=== PATIENT | female | born 1975 | race Caucasian/White ===

== ENCOUNTER 2018-07-20 01:48 | Outpatient (CLI) | payer OTHER, SELFPAY ==
[2018-07-20 08:37] LABS: ALT 21 U/L (12-78); AST 14 U/L (15-37); Albumin 3.6 g/dL (3.4-5.0); Alkaline Phosphatase 79 U/L (46-116); Anion Gap 7.9 mmol/L (3-11); BUN 13 mg/dL (7-18); Bilirubin, Total 0.6 mg/dL (0.2-1.0); CO2 27.1 mmol/L (21.0-32.0); CREATININE 0.84 mg/dL (0.55-1.02); Calcium 8.4 mg/dL (8.5-10.1); Chloride 106 mmol/L (98-107); Glucose 106 mg/dL (70-100); Potassium 4.3 mmol/L (3.5-5.1); Sodium 141 mmol/L (136-145); Total Protein 6.6 g/dL (6.4-8.2)
== END 2018-07-20 02:08 ==
DX: F32.9 Major depressive disorder, single episode, unspecified (principal); R51 Headache; G47.9 Sleep disorder, unspecified; H93.12 Tinnitus, left ear
CPT/HCPCS: 36415; 80053

== ENCOUNTER 2018-12-23 15:18 | Outpatient (REF) | payer OTHER, SELFPAY ==
--- NOTE | 2018-12-23 14:45 | PAPFT_PTH ---
PATIENT: Kierra Uriostegui LOC: [facility] U#:[id number] AGE/SX: 43/F ROOM: RE12/23/[address]: Elizabeth Bronson NP : 1975 BED: DIS: 12/23/2018 SPEC #: [id number] RECD: 12/23/18 18:06 STATUS: NANCY DANIELLE #: [id number] BETSY: 12/23/18 14:[address]: Elizabeth Bronson NP DEPT: [facility] Cytology RECD BY: Marguerite Barnhart ENTERED: 12/23/18 18:07 SP TYPE: PAPFT OTHR DR: Maricarmen Gomez APRN Tissues: 1 - CX/ENDOCX FOR PAP SMEARS Procedures: PAP THIN PREP/UVM Screening HPV DNA PROBE Comments: [id number]
== END 2018-12-23 15:38 ==
LOC: LBN 15:18
PROVIDERS: Visit Provider Nurse Practitioner Women's Health
DX: Z12.4 Encounter for screening for malignant neoplasm of cervix (principal); Z11.51 Encounter for screening for human papillomavirus (HPV)
CPT/HCPCS: 88142; 87624

== ENCOUNTER 2019-01-04 00:47 | Outpatient (CLI) | payer OTHER, SELFPAY ==
--- NOTE | 2019-01-04 17:30 | DI.MAMMO_ITS ---
SYMPTOM/DIAGNOSIS: SCREENING, Z12.31 MAMMOGRAMS: Mammograms were interpreted according to the usual protocol including computer analysis with CAD system, tomosynthesis and C view imaging. The breast tissue is of moderate radiodensity. There is no evidence of a mass. There are no suspicious calcifications and there has been no significant interval change when compared with prior images. SUMMARY: No evidence of malignancy. Category 1. Yearly screening mammography is recommended. Breast density, category B. SA ASSESSMENT OF FINDINGS: Negative. Category 1. Patient will receive a letter notifying them of these results. BI-RADS category B. There are scattered areas of fibroglandular density.
== END 2019-01-04 01:07 ==
PROVIDERS: Visit Provider Nurse Practitioner Women's Health
DX: Z12.31 Encounter for screening mammogram for malignant neoplasm of breast (principal)
CPT/HCPCS: 77063; 77067

== ENCOUNTER 2019-01-19 16:44 | Outpatient (REF) | payer OTHER, SELFPAY ==
--- NOTE | 2019-01-19 16:15 | CER_PTH ---
PATIENT: Kierra Uriostegui LOC: N U#:[id number] AGE/SX: 43/F ROOM: RE01/19/[address]: Ofelia Mills MD : 1975 BED: DIS: 01/19/2019 SPEC #: [id number] RECD: 01/19/19 17:47 STATUS: NANCY RERoselyn #: [id number] BETSY: 01/19/19 16:[address]: Ofelia Mills DEPT: Surgical Specimen RECD BY: Marguerite Barnhart ENTERED: 01/19/19 17:48 SP TYPE: CER SALVADOR DR: Maricarmen Gomez APRN Tissues: 1 - CERVICAL BIOPSY 2 - CERVICAL BIOPSY 3 - ENDOCERVICAL BX/CURRETTE Procedures: GROSS AND MICRO LEVEL 4 Comments: [id number]
== END 2019-01-19 17:04 ==
LOC: LBN 16:44
PROVIDERS: Visit Provider Obstetrics & Gynecology
DX: R87.610 Atypical squamous cells of undetermined significance on cytologic smear of cervix (ASC-US) (principal); Z97.5 Presence of (intrauterine) contraceptive device
CPT/HCPCS: 88305

== ENCOUNTER 2019-08-30 03:06 | Outpatient (CLI) | payer OTHER, SELFPAY ==
[2019-08-30 08:22] LABS: ALT 20 U/L (14-59); AST 11 U/L (15-37); Albumin 3.6 g/dL (3.4-5.0); Alkaline Phosphatase 68 U/L (46-116); Anion Gap 7.2 mmol/L (3-11); BUN 15 mg/dL (7-18); Bilirubin, Total 0.5 mg/dL (0.2-1.0); CO2 27.8 mmol/L (21.0-32.0); Calcium 8.5 mg/dL (8.5-10.1); Chloride 102 mmol/L (98-107); Glucose 97 mg/dL (74-106); Potassium 3.8 mmol/L (3.5-5.1); Sodium 137 mmol/L (136-145); Total Protein 6.2 g/dL (6.4-8.2)
== END 2019-08-30 03:26 ==
DX: F32.9 Major depressive disorder, single episode, unspecified (principal); G47.9 Sleep disorder, unspecified; R63.8 Other symptoms and signs concerning food and fluid intake; Z00.00 Encounter for general adult medical examination without abnormal findings
CPT/HCPCS: 36415; 80053

== ENCOUNTER 2020-04-03 10:45 | Outpatient (REF) | payer OTHER, SELFPAY ==
--- NOTE | 2020-04-03 09:15 | PAPFT_PTH ---
PATIENT: Kierra Uriostegui LOC: [facility] U#:[id number] AGE/SX: 44/F ROOM: RE04/03/[address]: Elizabeth Bronson NP : 1975 BED: DIS: 04/03/2020 SPEC #: [id number] RECD: 04/03/20 12:50 STATUS: NANCY DANIELLE #: [id number] BETSY: 04/03/20 09:[address]: Elizabeth Bronson NP DEPT: [facility] Cytology RECD BY: Marguerite Barnhart ENTERED: 04/03/20 12:50 SP TYPE: PAPFT OT DR: Maricarmen Gomez APRN Tissues: 1 - CX/ENDOCX FOR PAP SMEARS Procedures: PAP THIN PREP/UVM Screening HPV DNA PROBE Comments: [id number]
== END 2020-04-03 11:05 ==
LOC: LBN 10:45
PROVIDERS: Visit Provider Nurse Practitioner Women's Health
DX: Z12.4 Encounter for screening for malignant neoplasm of cervix (principal); Z11.51 Encounter for screening for human papillomavirus (HPV)
CPT/HCPCS: 88142; 87624

== ENCOUNTER 2020-04-25 01:14 | Outpatient (CLI) | payer OTHER, SELFPAY ==
--- NOTE | 2020-04-25 12:35 | DI.MAMMO_ITS ---
EXAM: MG MAMMO SCREENING CLINICAL HISTORY: screening TECHNIQUE: Bilateral full field digital CC and MLO mammographic images were obtained with 3D tomosyn thesis and utilizing computer aided detection (CAD). COMPARISON: Available for comparison. FINDINGS: Masses/Architectural Distortion: None seen. Microcalcifications: No suspicious pleomorphic-type are seen. Skin Thickening/Nipple Retraction: None. IMPRESSION: 1. No significant interval change with no specific features of malignancy noted. 2. Unless there is more urgent need, screening mammography is recommended, as per [place] [employer] guidelines. BI-RADS Category 1 - Negative Breast Density - Category B - Scattered areas of fibroglandular density A negative radiographic report should not delay biopsy if a dominant or clinically suspicious mass is present. Up to ten percent of cancers are not identified on mammography. A negative report may reinforce clinical impression. Adenosis and dense breasts may obscure an underlying neoplasm. False positive reports average 6 to 10%. Patient will receive a letter notifying them of these results.
== END 2020-04-25 01:34 ==
PROVIDERS: Visit Provider Nurse Practitioner Women's Health
DX: Z12.31 Encounter for screening mammogram for malignant neoplasm of breast (principal)
CPT/HCPCS: 77063; 77067

== ENCOUNTER 2020-09-14 04:51 | Outpatient (CLI) | payer OTHER, SELFPAY ==
[2020-09-16 10:04] LABS: COVID-19 RT-PCR Result NEGATIVE (Negative)
== END 2020-09-14 05:11 ==
DX: Z20.828 Contact with and (suspected) exposure to other viral communicable diseases (principal); Z11.59 Encounter for screening for other viral diseases
CPT/HCPCS: U0003

== ENCOUNTER 2020-10-11 04:59 | Outpatient (CLI) | payer OTHER, SELFPAY ==
[2020-10-11 08:43] LABS: ALT 25 U/L (14-59); AST 10 U/L (15-37); Albumin 3.8 g/dL (3.4-5.0); Alkaline Phosphatase 55 U/L (46-116); Anion Gap 8.2 mmol/L (3-11); BUN 15 mg/dL (7-18); Bilirubin, Total 0.6 mg/dL (0.2-1.0); CO2 26.8 mmol/L (21.0-32.0); CREATININE 0.77 mg/dL (0.55-1.02); Calcium 8.3 mg/dL (8.5-10.1); Chloride 107 mmol/L (98-107); Glucose 90 mg/dL (74-106); Potassium 4.3 mmol/L (3.5-5.1); Sodium 142 mmol/L (136-145); Total Protein 6.5 g/dL (6.4-8.2)
== END 2020-10-11 05:19 ==
DX: Z00.00 Encounter for general adult medical examination without abnormal findings (principal)
CPT/HCPCS: 36415; 80053

== ENCOUNTER 2020-12-25 09:47 | Outpatient (CLI) | payer OTHER, SELFPAY ==
[2020-12-26 14:32] LABS: COVID-19 RT-PCR UVMMC Result Positive (Negative)
== END 2020-12-25 09:48 | disposition home or self-care (01) ==
DX: Z20.828 Contact with and (suspected) exposure to other viral communicable diseases (principal)
CPT/HCPCS: U0003

== ENCOUNTER 2021-04-04 12:02 | Outpatient (REF) | payer OTHER, SELFPAY ==
--- NOTE | 2021-04-04 09:20 | PAPFT_PTH ---
PATIENT: Kierra Uriostegui LOC: [facility] U#:[id number] AGE/SX: 45/F ROOM: RE04/04/[address]: Elizabeth Bronson NP : 1975 BED: DIS: 04/04/2021 SPEC #: [id number] RECD: 04/04/21 12:48 STATUS: NANCY REQ #: [id number] BETSY: 04/04/21 09:[address]: Aiyana GRANADOS,Elizabeth DEPT: [facility] Cytology RECD BY: Marguerite Barnhart ENTERED: 04/04/21 12:48 SP TYPE: PAPFT OTHR DR: Maricarmen Gomez APRN Tissues: 1 - CX/ENDOCX FOR PAP SMEARS Procedures: PAP THIN PREP/UVM Screening HPV DNA PROBE Comments: [id number]
== END 2021-04-04 12:03 | disposition home or self-care (01) ==
LOC: LBN 12:02
PROVIDERS: Visit Provider Nurse Practitioner Women's Health
DX: Z12.4 Encounter for screening for malignant neoplasm of cervix (principal); Z87.42 Personal history of other diseases of the female genital tract; Z11.51 Encounter for screening for human papillomavirus (HPV)
CPT/HCPCS: 88142; 87624

== ENCOUNTER 2021-04-30 01:10 | Outpatient (CLI) | payer OTHER, SELFPAY ==
--- NOTE | 2021-04-30 07:00 | DI.MAMMO_ITS ---
Exam(s) MAMMO SCREENING EXAM: MAMMO SCREENING CLINICAL HISTORY: screening,Z12.39. TECHNIQUE: Bilateral full field digital CC and MLO mammographic images were obtained with 3D tomosyn thesis and utilizing computer aided detection (CAD). COMPARISON: Prior mammograms dating back to 2011, the most recent being . FINDINGS: There are no new spiculated masses nor malignant appearing microcalcification groups. There is no significant architectural distortion nor skin thickening-retraction. IMPRESSION: No radiographic evidence of malignancy. BI-RADS Category 1 - Negative Breast Density - Category C - Heterogeneously dense Breast density Category C or D implies that the patient has dense breast tissue. Dense breast tissue can make it harder to find cancer on a mammogram. Dense breast tissue is also associated with an incr eased risk of breast cancer. This information about the result of the mammogram report was provided to the patient to raise their awareness. Use this report when you speak with the patient about their risks for breast cancer, which includes their family history. At that time, you may recommend additional screening tests (Ultrasoun d or MRI) as these tests may add significant information. A negative radiographic report should not delay biopsy if a dominant or clinically suspicious mass is present. Up to ten percent of cancers are not identified on mammography. A negative report may reinforce clinical impression. Adenosis and dense breasts may obscure an underlying neoplasm. False positive reports average 6 to 10%. Patient will receive a letter notifying them of these results.
== END 2021-04-30 01:30 ==
PROVIDERS: Visit Provider Nurse Practitioner Women's Health
DX: Z12.31 Encounter for screening mammogram for malignant neoplasm of breast (principal)
CPT/HCPCS: 77063; 77067

== ENCOUNTER 2021-10-02 03:02 | Outpatient (CLI) | payer BC, SELFPAY ==
[2021-10-02 08:23] LABS: ALT 28 U/L (14-59); AST 15 U/L (15-37); Albumin 3.7 g/dL (3.4-5.0); Alkaline Phosphatase 69 U/L (46-116); BUN 17 mg/dL (7-18); Bilirubin, Total 0.5 mg/dL (0.2-1.0); CREATININE 0.8 mg/dL (0.55-1.02); Calcium 8.4 mg/dL (8.5-10.1); Calculated LDL 162 mg/dL (<100); Chloride 104 mmol/L (98-107); Cholesterol 246 mg/dL (<200); Glucose 93 mg/dL (74-106); HDL Cholesterol 62 mg/dL (40-60); Potassium 3.9 mmol/L (3.5-5.1); Sodium 141 mmol/L (136-145); Total Protein 6.5 g/dL (6.4-8.2); Triglyceride 111 mg/dL (<150)
== END 2021-10-02 03:03 | disposition home or self-care (01) ==
LOC: LBO 03:02
DX: Z00.00 Encounter for general adult medical examination without abnormal findings (principal); E78.5 Hyperlipidemia, unspecified
CPT/HCPCS: 36415; 80053; 80061

== ENCOUNTER 2022-12-04 01:29 | Outpatient (CLI) | payer BC, SELFPAY ==
--- NOTE | 2022-12-04 08:15 | DI.MAMMO_ITS ---
Exam(s) MAMMO SCREENING EXAM: MAMMO SCREENING CLINICAL HISTORY: screening,Z12.39 TECHNIQUE: Bilateral full field digital CC and MLO mammographic images were obtained with 3D tomosyn thesis and utilizing computer aided detection (CAD). COMPARISON: Available for comparison. FINDINGS: Masses/Architectural Distortion: None seen. Microcalcifications: No suspicious pleomorphic-type are seen. Skin Thickening/Nipple Retraction: None. IMPRESSION: 1. No significant interval change with no specific features of malignancy noted. 2. Unless there is more urgent need, screening mammography is recommended, as per [place] [employer] guidelines. BI-RADS Category 1 - Negative Breast Density - Category C - Heterogeneously dense Breast density category C or D implies that the patient has dense breast tissue. Dense breast tissue is very common and is not abnormal but dense breast tissue can make it harder to find cancer on a ma mmogram. Also, dense breast tissue may increase their breast cancer risk. This information about the result of the mammogram report was provided to the patient to raise their awareness. Use this report when you speak with the patient about their risks for breast cancer, which includes their family hist ory. At that time, you may recommend for more screening tests (Ultrasound or MRI) as they might be us eful based on their risk. A negative radiographic report should not delay biopsy if a dominant or clinically suspicious mass is present. Up to ten percent of cancers are not identified on mammography. A negative report may reinforce clinical impression. Adenosis and dense breasts may obscure an underlying neoplasm. False positive reports average 6 to 10%. Patient will receive a letter notifying them of these results.
== END 2022-12-04 01:49 ==
PROVIDERS: PCP Nurse Practitioner Family; Visit Provider Nurse Practitioner Family
DX: Z12.31 Encounter for screening mammogram for malignant neoplasm of breast (principal)
CPT/HCPCS: 77063; 77067

== ENCOUNTER 2022-12-09 03:18 | Outpatient (CLI) | payer BC, SELFPAY ==
[2022-12-09 08:53] LABS: ALT 18 U/L (14-59); AST 12 U/L (15-37); Albumin 3.7 g/dL (3.4-5.0); Alkaline Phosphatase 71 U/L (46-116); Anion Gap 13.2 mmol/L (3-11); BUN 18 mg/dL (7-18); Bilirubin, Total 0.3 mg/dL (0.2-1.0); CO2 24.8 mmol/L (21.0-32.0); Calcium 9.2 mg/dL (8.5-10.1); Calculated LDL 85 mg/dL (<100); Chloride 104 mmol/L (98-107); Cholesterol 154 mg/dL (<200); Glucose 92 mg/dL (74-106); HDL Cholesterol 57 mg/dL (40-60); Potassium 3.7 mmol/L (3.5-5.1); Sodium 142 mmol/L (136-145); Total Protein 6.7 g/dL (6.4-8.2); Triglyceride 63 mg/dL (<150)
== END 2022-12-09 03:19 | disposition home or self-care (01) ==
PROVIDERS: PCP Nurse Practitioner Family; Visit Provider Nurse Practitioner Family
DX: E78.5 Hyperlipidemia, unspecified (principal); F41.8 Other specified anxiety disorders; E66.8 Other obesity
CPT/HCPCS: 36415; 80053; 80061

== ENCOUNTER 2023-03-13 11:50 | Day surgery (SDC) | payer BC, SELFPAY ==
[2023-03-13 12:00] VITALS: BP 140/99; PULSE 87; RESP 18; TEMP 37; O2SAT 98
[2023-03-13] MEDS: Lactated Ringers 1,000 ML 80 ML IV (12:35)
--- NOTE | 2023-03-13 12:56 | W.ANESPRE ---
General Info Date of Service Date Performed: 03/13/23 Height: 5 ft 4 in Weight: 89.3 kg Body Mass Index (BMI): 33.7 Surgical Procedure: Operation Date: 03/13/23 13:05 Proposed Procedure Side Surgeon dayana Strickland MD Meds Allergies and Home Medications Allergies Allergy/AdvReac Type Severity Reaction Status Date / Time codeine AdvReac Severe very bad Verified 03/13/23 12:08 stomach cramps Home Medication Medication Instructions Recorded levonorgestrel 21 mcg/24 hours (8 1 ea intrauterine ONCE #1 implant 07/09/16 yrs) 52 mg intrauterine device (Mirena) calcium carbonate 500 mg calcium 500 mg PO DAILY 04/04/21 (1,250 mg) capsule cholecalciferol (vitamin D3) 625 625 mcg PO QWEEK 04/04/21 mcg (25,000 unit) capsule biotin 10,000 mcg capsule 10,000 mcg PO DAILY 09/24/21 sumatriptan succinate 50 mg tablet 50 mg PO PRN #9 tab-caps 04/09/22 (Imitrex) trazodone 50 mg tablet 50 mg PO HS #90 tab-caps 07/11/22 sertraline 100 mg tablet 100 mg PO DAILY #90 tabs 09/10/22 bisacodyl 5 mg tablet,delayed 5 mg PO ONCE #4 tabs 02/27/23 release (Dulcolax (bisacodyl)) polyethylene glycol 3350 17 17 g PO ONCE #238 grams 02/27/23 gram/dose oral powder atorvastatin 10 mg tablet 10 mg PO DAILY 03/13/23 Current Visit Medications: Current Medications Generic Name Dose Route Start Last Admin Trade Name Blaineq PRN Reason Stop Dose Admin Ringer's Solution 1,000 mls @ 80 mls/hr 03/13/23 06:00 03/13/23 12:35 IV 03/13/23 23:59 80 mls/hr INFUSION LIZBET Administration IV Miscellaneous Supplies 1 each 03/13/23 06:00 Iv Access IV 03/13/23 23:59 DIRECTED LIZBET Sodium Chloride 0 ml 03/13/23 06:00 Normal Saline Flush 10 Ml Syr IV 03/13/23 23:59 PRN PRN Sodium Chloride 0 ml 03/13/23 06:00 Normal Saline 10 Ml Vial IJ 03/13/23 23:59 DIRECTED PRN Sterile Water 0 ml 03/13/23 06:00 Water,Injection,Sterile 10 Ml Vial IJ 03/13/23 23:59 DIRECTED PRN PFSH Active Problems Active Problems: Problem Status Onset Code Strain of right biceps S46.211A Obesity (BMI 30.0-34.9) E66.9 Hyperlipidemia E78.5 Anxiety F41.9 Excessive drinking alcohol F10.10 Alopecia L65.9 Sleep disorder G47.9 Herpes simplex B00.9 Headache R51 Medical History Medical History IUD surveillance (01/22/18) Migraines Tobacco Smoking/Tobacco Use Status: Never Passive smoking exposure: No Second hand exposure: Yes Alcohol Alcohol Intake: current Alcohol intake frequency: a few times a month Alcohol type: beer Substance Use Substance use: Never Substance use type: does not use Prental History History 2 Para Hx # Term Pregnancies 2 Multiple births Hx # Pregnancies Ectopic pregnancies AB induced Hx Number of Living Children AB spontaneous Vital Signs and Lab Results Vital Signs Most Recent Vital Signs in EMR: Most Recent Vital Signs Temp Pulse Resp BP Pulse Ox 37.0 C 87 18 140/99 H 98 03/13/23 12:00 03/13/23 12:00 03/13/23 12:00 03/13/23 12:00 03/13/23 12:00 Point of Care Results Point of Care Results: POC- Test(urine) Negative 03/13/23 12:23 Lab Results Blood Type / Crossmatch: No Data to Display Complete Blood Count: No Data to Display Complete Metabolic Panel: No Data to Display Liver Function Panel: No Data to Display Coagulation Panel: No Data to Display Cardiac Panel: No Data to Display Arterial Blood Gas: No Data to Display Venous Blood Gas: No Data to Display Pancreas Panel: No Data to Display Thyroid Panel: No Data to Display Infectious Disease: No Data to Display Blood Cultures: No Data to Display Toxicology Panel: No Data to Display Panel: No Data to Display Anesthesia Assessment and Plan Anesthesia History Personal History: No History of Anesthesia Complications Family History: No Family History of Anesthesia Complications Exercise Tolerance Exercise Tolerance: Metabolic Equivalents>4 Pertinent Negatives Pertinent Negatives: No Symptoms of GERD, No Major Cardiovascular Symptoms or Complaints and No Major Pulmonary Symptoms or Complaints Cardiac & Pulmonary Exam Cardiac Exam: Normal S1/S2 Heart Sounds Pulmonary Exam: Clear Bilateral Breath Sounds Implantable Cardiac Device Does patient have a Pacemaker or an ICD?: No Airway Exam Known Difficult Airway: No Mallampati Class: 1 Mouth Opening: Normal (> 3cm) Thyromental Distance: Greater than 3 cm Neck Range of Motion: Full ROM Neck Circumference: Normal Teeth Condition: Normal Dentition ASA Classification ASA Score: ASA 2 Emergency Case?: No NPO Status NPO Status: NPO Clears >2 hours, Solids >8 hours Status Status: Negative HCG Anesthesia Plan Resuscitation Status: Full Code Anesthesia Technique: General Anesthesia Airway Planned: Natural Airway Monitors Used: Standard Monitors
[2023-03-13 13:09] VITALS: BMI 33.7
--- NOTE | 2023-03-13 13:13 | W.COLOREPORT ---
Date of service: 03/13/23 Time of Service: 13:15 Colonoscopy Report Procedure Description: Procedures performed: 1. Colonoscopy Preoperative diagnosis: Colonoscopy Postoperative diagnosis: Normal colon, normal rectum. Surgeon: Destin Strickland Anesthesia: Belia Indication for procedure: The patient is a 47-year-old woman who is never had a screening colonoscopy before. She is not having symptoms. There is a family history of colon cancer in a maternal grandfather. Findings: No polyps. No inflammation. No diverticuli. No hemorrhoid disease. Surveillance/follow-up recommendations: 10 years. Complications: None Blood loss: Minimal Specimens:?? None Quality of Prep:?? Good Procedure in detail: Written consent was obtained from the patient who was in agreement with the risks, benefits and indications of the procedure.? We went to the endoscopy suite and laid the patient in left lateral decubitus position.? Anesthesia was administered which was tolerated well.? A timeout was performed and when we are all in agreement we began the procedure. Digital rectal exam and visual examination was performed and within normal limits.? A well?lubricated colonoscope was advanced without difficulty all the way to the cecum identified by the ileocecal valve, and triangular folds and appendiceal orifice.? It was then slowly withdrawn.?? Retroflexion was performed in the rectum.? The findings/interventions are noted above. The scope was then removed and the patient tolerated the procedure well and was then taken back to the PACU in hemodynamically stable condition.
--- NOTE | 2023-03-13 13:16 | W.PM.DSUDISC ---
Date of service: 03/13/23 Time of Service: 13:30 Discharge Plan Disposition Patient Disposition: Home Condition: Good Discharge Details Attending Provider: Maxi Strickland Primary Care Provider: Anastacio Gtz Home Meds and New Rx's Prescriptions: No Action biotin 10,000 mcg capsule 10,000 mcg PO DAILY bisacodyl [Dulcolax (bisacodyl)] 5 mg tablet,delayed release (DR/EC) 5 mg PO ONCE Qty: 4 0RF Rx Instructions: Take per colonoscopy instructions provided by ordering providers office polyethylene glycol 3350 17 gram/dose powder 17 g PO ONCE Qty: 238 0RF Rx Instructions: Take per colonoscopy instructions provided by ordering providers office cholecalciferol (vitamin D3) 625 mcg (25,000 unit) capsule 625 mcg PO QWEEK calcium carbonate 500 mg calcium (1,250 mg) capsule 500 mg PO DAILY Mirena 1 EACH intrauterine device 1 ea Intrauterine ONCE Qty: 1 sumatriptan succinate [Imitrex] 50 mg tablet 50 mg PO PRN Qty: 9 2RF Rx Instructions: MAY REPEAT X 1 IN ONE HOUR. trazodone 50 mg tablet 50 mg PO HS Qty: 90 4RF sertraline 100 mg tablet 100 mg PO DAILY Qty: 90 2RF atorvastatin 10 mg tablet 10 mg PO DAILY Rx Instructions: TAKE ONE TABLET BY MOUTH EVERY EVENING Discharge Instructions Additional Instructions: FINDINGS: No abnormal findings. No polyps. No inflammation or any other disease process. You should repeat another colonoscopy in 10 years. Stand Alone Forms: Colonoscopy Post Instructions Activity:: Activity as Tolerated Diet:: As Tolerated Discharge Orders Discharge Orders: Discharge Order (Routine); Ordered 03/13/23 Ordered By: Maxi Strickland
[2023-03-13 13:54] VITALS: BP 139/95; PULSE 88; RESP 16; TEMP 37; O2SAT 96
[2023-03-13 14:26] VITALS: BP 122/81; PULSE 79; RESP 16; TEMP 36.4; O2SAT 97
--- NOTE | 2023-03-13 14:34 | W.ANESPOSTOP ---
Postoperative Evaluation Date, Time and Location Date Performed: 03/13/23 Time Performed: 14:34 Patient Location: Day Surgery Unit Vital Signs Most Recent Imported Vital Signs: Most Recent Vital Signs Temp Pulse Resp BP Pulse Ox 36.4 C L 79 16 122/81 97 03/13/23 14:26 03/13/23 14:26 03/13/23 14:26 03/13/23 14:26 03/13/23 14:26 Pain Score Most Recent Pain Score: Most Recent Pain Score Pain Level 0 03/13/23 14:26 Assessment Mental Status: Awake (Alert & Oriented to Patient Baseline) Airway and Respiratory Function: Patent airway with normal (patient baseline) respiratory exam Cardiovascular Function: Hemodynamically Stable Hydration Status: Adequately Hydrated Nausea & Vomiting: No Nausea or Vomiting Pain: Pt. Denies Any Pain Peripheral Nerve Block: Patient did not receive a nerve block
== END 2023-03-13 14:40 | disposition home or self-care (01) ==
PROVIDERS: PCP Nurse Practitioner Family; Visit Provider Student in an Organized Health Care Education/Training Program
PROC: 0DJD8ZZ Inspection of Lower Intestinal Tract, Via Natural or Artificial Opening Endoscopic (ICD-10-PCS; CPT 45378; principal; 2023-03-13 13:00)
DX: Z12.11 Encounter for screening for malignant neoplasm of colon (principal); Z80.0 Family history of malignant neoplasm of digestive organs
CPT/HCPCS: 45378; 81025; J2001

== ENCOUNTER → 2023-11-24 01:58 | Outpatient (CLI) | payer BC, SELFPAY ==
--- NOTE | 2023-11-24 08:45 | DI.RAD_ITS ---
Exam(s) XR KNEE RT 3V AP,LAT,LUCIO EXAM: XR KNEE RT 3V AP,LAT,LUCIO CLINICAL HISTORY: persistent rt knee pain, m25.561. TECHNIQUE: 2D digital imaging was performed of the right knee. Three views obtained. AP, lateral an d PA tunnel views were obtained. COMPARISON: CR RIGHT KNEE COMPLETE from 10/20/2012 delete FINDINGS: BONES: No acute fracture is present. No bony destructive lesion is seen. JOINTS: The knee is normally aligned. No joint effusion is seen. SOFT TISSUE: Normal. IMPRESSION: Unremarkable radiographs of the right knee. DATA REPOSITORY: RADIATION DOSE DELIVERED:
== END ==
PROVIDERS: PCP Nurse Practitioner Family; Visit Provider Nurse Practitioner Family
DX: M25.561 Pain in right knee (principal)
CPT/HCPCS: 73562

== ENCOUNTER → 2023-12-08 02:42 | Outpatient (CLI) | payer BC, SELFPAY ==
--- NOTE | 2023-12-08 08:25 | DI.MAMMO_ITS ---
Exam(s) MAMMO SCREENING EXAM: MAMMO SCREENING CLINICAL HISTORY: screening, Z12.39 TECHNIQUE: Mammograms were interpreted according to the usual protocol including computer analysis w [employer] CAD system, tomosynthesis and C-view imaging. COMPARISON: 2017 through 2022 FINDINGS: The breasts are composed of scattered fibroglandular densities, Breast Density category B. No suspicious masses or suspicious microcalcifications are seen. No skin thickening or abnormal axillary lymph nodes are seen. There has been no significant change from prior exams. IMPRESSION: BI-RADS Category 1, Negative mammogram Yearly screening mammography is recommended. Breast Density - Category B, scattered fibroglandular densities. A negative radiographic report should not delay biopsy if a dominant or clinically suspicious mass is present. Up to ten percent of cancers are not identified on mammography. A negative report may reinforce clinical impression. Adenosis and dense breasts may obscure an underlying neoplasm. False positive reports average 6 to 10%. Patient will receive a letter notifying them of these results.
== END ==
PROVIDERS: PCP Nurse Practitioner Family; Visit Provider Nurse Practitioner Family
DX: Z12.31 Encounter for screening mammogram for malignant neoplasm of breast (principal)
CPT/HCPCS: 77063; 77067

== ENCOUNTER 2024-11-23 21:11 | Outpatient (REF) | payer BC, SELFPAY ==
[2024-11-23 22:28] LABS: ALT 13 U/L (14-59); AST 9 U/L (15-37); Albumin 3.6 g/dL (3.4-5.0); Alkaline Phosphatase 82 U/L (46-116); Anion Gap 9.5 mmol/L (3-11); BUN 13 mg/dL (7-18); Bilirubin, Total 0.23 mg/dL (0.2-1.0); CO2 26.5 mmol/L (21.0-32.0); CREATININE 0.8 mg/dL (0.55-1.02); Calcium 8.5 mg/dL (8.5-10.1); Calculated LDL 75 mg/dL (<100); Chloride 109 mmol/L (98-107); Cholesterol 137 mg/dL (<200); Glucose 95 mg/dL (74-106); HDL Cholesterol 45 mg/dL (40-60); Potassium 4.2 mmol/L (3.5-5.1); Sodium 145 mmol/L (136-145); Total Protein 6.3 g/dL (6.4-8.2); Triglyceride 89 mg/dL (<150)
[2024-11-25 11:16] LABS: Hepatitis C Ab w Rflx HCV PCR Negative (Negative)
[2024-11-25 11:20] LABS: HIV-1/2 Ag & Ab Screen Negative (Negative)
[2024-11-25 11:29] LABS: HBs Antibody, Quant 12.6 mIU/mL (See Note); Hep B Surface Ab Positive (See Note); Hepatitis B Core Antibody Negative (Negative); Hepatitis B Surface Antigen Negative (Negative)
== END 2024-11-23 21:12 | disposition home or self-care (01) ==
LOC: LBN 21:11
PROVIDERS: PCP Nurse Practitioner Family; Visit Provider Nurse Practitioner Family
DX: Z11.59 Encounter for screening for other viral diseases (principal); E78.5 Hyperlipidemia, unspecified; Z11.4 Encounter for screening for human immunodeficiency virus [HIV]; Z12.31 Encounter for screening mammogram for malignant neoplasm of breast; J32.9 Chronic sinusitis, unspecified
CPT/HCPCS: 80053; 80061; 86704; 86706; 86803; 87340; 87389

== ENCOUNTER 2024-12-01 10:19 | Emergency (ER) | payer BC, SELFPAY ==
[2024-12-01 10:32] VITALS: BP 107/74; PULSE 126; RESP 16; TEMP 37.6; O2SAT 95
[2024-12-01 10:46] VITALS: BP 107/74; PULSE 126; RESP 16; TEMP 37.6; O2SAT 95
[2024-12-01] MEDS: Ondansetron O.D.T. 4 MG TABEF PO (10:58)
[2024-12-01] MEDS: Acetaminophen 500 MG TAB 1000 MG PO (10:58)
[2024-12-01] MEDS: Ibuprofen 600 MG TAB PO (10:59)
[2024-12-01 11:41] LABS: COVID-19 PCR Negative (Negative); Influenza A PCR Negative (Negative); Influenza B PCR Negative (Negative); RSV PCR Negative (Negative)
[2024-12-01 11:42] LABS: Source Nasopharynx
--- NOTE | 2024-12-01 12:09 | W.ED.GENAD ---
Discharge Plan Disposition Patient Disposition: Home Condition: Good Discharge Details Clinical Impression: Viral illness Primary Care Provider: Anastacio Gtz ED Provider: Lorna Solorzano Home Meds and New Rx's Prescriptions: New ondansetron 4 mg tablet,disintegrating 4 mg PO Q8H PRNQty: 7 0RF No Action biotin 10,000 mcg capsule 10,000 mcg PO DAILY cholecalciferol (vitamin D3) 625 mcg (25,000 unit) capsule 625 mcg PO QWEEK calcium carbonate 500 mg calcium (1,250 mg) capsule 500 mg PO DAILY trazodone 50 mg tablet See Rx Instructions .ROUTE .COMPLEX Qty: 90 4RF Dose Instruction: TAKE ONE TABLET BY MOUTH AT BEDTIME Rx Instructions: TAKE ONE TABLET BY MOUTH AT BEDTIME sertraline 100 mg tablet 100 mg PO DAILY Qty: 90 4RF atorvastatin 10 mg tablet 10 mg PO DAILY Qty: 90 4RF Rx Instructions: TAKE ONE TABLET BY MOUTH EVERY EVENING Wegovy 0.25 mg/0.5 mL pen injector 2.4 mg subcut QWEEK Rx Instructions: administer weeks 1 through 4 of therapy amoxicillin-pot clavulanate 875-125 mg tablet 1 tab PO Q12H Qty: 28 0RF Rx Instructions: Take 1 tablet twice a day for 14 days Mirena 1 EACH intrauterine device 1 ea Intrauterine ONCE Qty: 1 sumatriptan succinate [Imitrex] 50 mg tablet 50 mg PO PRN Qty: 9 2RF Rx Instructions: MAY REPEAT X 1 IN ONE HOUR. Discharge Instructions Additional Instructions: Flu/COVID/RSV was negative. Your symptoms today are most consistent with another viral illness. Please stay well hydrated, drinking plenty of fluids throughout the day. You may use ibuprofen 600 mg every 8 hours and tylenol 650 mg every 8 hours as needed for fever /chills or body aches. Get plenty of rest. Practice good handwashing and wear a mask in public if you are coughing to avoid spreading illness to others. For severe nausea, you may use the Zofran prescribed. Follow-up with your primary care provider as needed. Return to emergency care if you develop difficulty breathing, chest pains, worsening of cough or fever after initial improvement, or if you are very worried and need to be rechecked again immediately. Referrals: Anastacio Gtz, [employer] [Primary Care Provider] - [facility] General Date/Time Provider Initiated Documentation: 12/01/24 10:38. HPI Narrative: Kierra is a 49year old female who presents to the emergency department today for evaluation of viral symptoms. She reports that this morning she woke up with fevers, body aches, headache, chills, mild cough, nausea, and generalized abdominal discomfort. She was sick earlier this month with flu a, followed by a sinus infection. She had full resolution of symptoms after being treated for sinus infection, though has had some persistent congestion. Denies sore throat, chest pain, wheezing/difficulty breathing, vomiting, diarrhea, change in bladder function. Denies significant past medical history. Physical exam reassuring. Kierra is alert and oriented, no acute distress. Easy work of breathing, lung sounds clear bilaterally. Normal heart sounds, mild tachycardia noted. Abdomen is soft, nondistended, nontender to palpation. Slightly tacky mucous membranes. History and presentation consistent with viral illness. No red flags concerning for acute bacterial infection or serious systemic illness requiring diagnostic imaging or blood work. Patient does appear slightly dehydrated, however low suspicion for electrolyte imbalance based on timeline of events starting today. I independently interpreted the following tests: COVID/flu/RSV negative While in the emergency department, Kierra received Zofran and Tylenol/ibuprofen with good improvement of symptoms. She reports she is feeling better, has been able to take p.o. ju shane and water without difficulty, has also been able to eat crackers. Tachycardia resolved, 126 down to 97. Overall patient is appearing much improved, will send home with p.o. Zofran to maintain hydration at home Reviewed discharge instructions with patient, including symptomatic management and red flags indicating need for return to emergency care Related Data Home Medications ?Medication ?Instructions ?Recorded ?Confirmed levonorgestrel 21 mcg/24 hr (up to 1 ea intrauterine ONCE #1 implant 07/09/16 12/01/24 8 years) 52 mg intrauterine device (Mirena) calcium carbonate 500 mg PO DAILY 04/04/21 12/01/24 cholecalciferol (vitamin D3) 625 625 mcg PO QWEEK 04/04/21 12/01/24 mcg (25,000 unit) capsule biotin 10,000 mcg capsule 10,000 mcg PO DAILY 09/24/21 12/01/24 sumatriptan succinate 50 mg tablet 50 mg PO PRN #9 tab-caps 04/09/22 12/01/24 (Imitrex) amoxicillin 875 mg-potassium 1 tab PO Q12H #28 tabs 11/23/24 12/01/24 clavulanate 125 mg tablet atorvastatin 10 mg tablet 10 mg PO DAILY #90 tabs 11/23/24 12/01/24 semaglutide (weight loss) 0.25 2.4 mg subcut QWEEK 11/23/24 12/01/24 mg/0.5 mL subcutaneous pen injector (Wegovy) sertraline 100 mg tablet 100 mg PO DAILY #90 tabs 11/23/24 12/01/24 trazodone 50 mg tablet See Rx Instructions .Route 11/23/24 12/01/24 .COMPLEX #90 tabs ondansetron 4 mg disintegrating 4 mg PO Q8H PRN #7 tabs 12/01/24 tablet Previous Rx's ?Medication ?Instructions ?Recorded sumatriptan succinate 50 mg tablet 50 mg PO PRN #9 tab-caps 04/09/22 (Imitrex) amoxicillin 875 mg-potassium 1 tab PO Q12H #28 tabs 11/23/24 clavulanate 125 mg tablet atorvastatin 10 mg tablet 10 mg PO DAILY #90 tabs 11/23/24 sertraline 100 mg tablet 100 mg PO DAILY #90 tabs 11/23/24 trazodone 50 mg tablet See Rx Instructions .Route 11/23/24 .COMPLEX #90 tabs ondansetron 4 mg disintegrating 4 mg PO Q8H PRN #7 tabs 12/01/24 tablet Allergies Allergy/AdvReac Type Severity Reaction Status Date / Time codeine AdvReac Severe very bad Verified 12/01/24 10:35 stomach cramps General Stated Complaint: RespSymp SUZI: 3 Review of Systems Narrative: see HPI Exam Const General: cooperative, comfortable, no acute distress, well developed and well groomed Nutritional Appearance: average body habitus Orientation: alert and oriented x3 HENMT Head: normal to inspection Ears: hearing grossly normal bilaterally General nose exam: external nose normal Mouth: oral mucosae normal, lip normal, tongue normal, salivary ducts normal, oropharynx normal and moist mucous membranes abnormal (Slightly tacky) Teeth and gingiva: dentition normal Throat: posterior oropharynx normal Resp Effort & Inspection: normal respiratory effort and able to speak in complete sentences Auscultation: clear to auscultation bilaterally Cardio Rate: tachycardic Rhythm: regular rhythm GI Inspection: normal to inspection Palpation: soft, not firm, no guarding, not rigid and nontender Course Vital Signs Vital signs: Vital Signs Temperature 37.6 C H 12/01/24 10:32 Pulse 126 H 12/01/24 10:32 Respiratory Rate 16 12/01/24 10:32 Blood Pressure 107/74 12/01/24 10:32 Pulse Oximetry 95 12/01/24 10:32 Temperature 37.6 C H 12/01/24 10:46 Temperature Source Oral 12/01/24 10:46 Pulse 126 H 12/01/24 10:46 Respiratory Rate 16 12/01/24 10:46 Respiratory Effort Normal, Non-Labored 12/01/24 11:25 Respiratory Depth Normal 12/01/24 11:25 Blood Pressure 107/74 12/01/24 10:46 Blood Pressure Position Sitting 12/01/24 10:46 Pulse Oximetry 95 12/01/24 10:46 Oxygen Delivery Method Room Air 12/01/24 10:46 Oxygen Flow Rate 0 12/01/24 10:46 Pain Level 7 12/01/24 10:46 Lab/Test Results Lab/Test Results: Laboratory Tests Range/Units 12/01/24 10:58 COVID-19 Source Nasopharynx SARS-CoV-2 (PCR) (Negative) Negative Influenza Type A (PCR) (Negative) Negative Influenza Type B (PCR) (Negative) Negative RSV (PCR) (Negative) Negative Medical Decision Making Quality:SDOH Health Related Social Needs: No Data to Display PFSH All Active Problems (Updated 12/01/24 @ 12:14 by Lorna Barrett) Viral illness (Acute) Right knee pain (Acute) Bilateral wrist pain (Acute) radiates to hands, affects all fingers Obesity (BMI 30.0-34.9) (Acute) Hyperlipidemia (Chronic) Anxiety (Chronic) Alopecia (Acute) Sleep disorder (Acute) IUD surveillance (Acute 06/17/23) Herpes simplex (Chronic) Headache (Chronic) Medical History Strain of right biceps Migraines Family History Mother Essential hypertension Heart disease Hyperlipidemia Depression Father Essential hypertension Heart disease Hyperlipidemia Maternal Grandfather , in his 40s Colon cancer Paternal Grandfather , in his 40s Heart disease Maternal Grandmother , age 87 Diabetes Essential hypertension Breast cancer Paternal Grandmother , age 92 No problems noted. Daughter No problems noted. Daughter No problems noted. 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 Pets and animals: Yes Pets and animals: dog(s) Sexually active: Yes Do you think of yourself as: straight/heterosexual Current gender identity: female What is your relationship status?: How often do you talk on the phone with friends or family?: twice per week How often do you get together with friends or relatives?: once per week How often do you attend religious or shinto services?: 1-3 times per year Do you belong to any clubs or organized social groups?: yes Panel score (0-1 are the most socially isolated patients): 3 What type of physical activity do you participate in: regular exercise Duration: 30-45 minutes/day Frequency: 3-4 times per week Marianne/Congregational: No preference Special marianne needs: No Agree to transfusion: Yes Seatbelt use: always Helmet use: Yes Helmet use: sometimes Drive 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
[2024-12-01 12:10] VITALS: BP 105/75; PULSE 97; O2SAT 96
== END 2024-12-01 12:31 | disposition home or self-care (01) ==
LOC: ER 12:29
PROVIDERS: Emergency Medicine; Emergency Provider Nurse Practitioner Family; PCP Nurse Practitioner Family
DX: B34.9 Viral infection, unspecified (principal); R50.9 Fever, unspecified
CPT/HCPCS: 87637; 99283

== ENCOUNTER 2024-12-27 01:58 | Outpatient (CLI) | payer BC, SELFPAY ==
--- NOTE | 2024-12-27 07:45 | DI.US_ITS ---
Exam(s) US BREAST LT COMPLETE MG MAMMO DIAGNOSTIC BI EXAM: MG MAMMO DIAGNOSTIC BI AND COMPLETE LEFT BREAST ULTRASOUND CLINICAL HISTORY: L outer breast pain,N64.4. TECHNIQUE: BILATERAL CC AND MLO mammographic images were obtained with 3D tomosynthesis technique an d utilizing computer aided detection (CAD). ALSO performed spot compression view of area of clinical concern left breast. BILATERAL COMPLETE LEFT BREAST ULTRASOUND was performed, including all 4 quadrants as well as the axi lla. COMPARISON: Prior mammograms were reviewed, the most recent being . THIS 49-YEAR-OLD PATIENT recently felt some pain and possible transient lump towards the upper outer quadrant of her left breast. She feels that this has improved. FINDINGS: DIAGNOSTIC BILATERAL MAMMOGRAM: There are no new spiculated masses nor malignant-appearing microcalcification groups in either breast . A small benign-appearing microcalcification group in the left breast is unchanged. No new architectural distortion or skin thickening-traction. COMPLETE LEFT BREAST ULTRASOUND: There is a solitary finding which is at the 2 o'clock position corre sponding to her area of recent clinical concern. This has the appearance of a 4 millimeter microcyst . The only other finding is at the 5 o'clock position which upon careful bedside multiplanar scanning i s negative. Scanning of the left axilla is negative for adenopathy. IMPRESSION: 1. No mammographic evidence of malignancy in either breast. 2. Left breast finding as above which is probably a benign microcyst, seen only on ultrasound, and a ppears to correlate with her area of recent transient pain. Most probably this was a cyst which has decreased in size; hence the decreased symptomatology. Appropriate follow-up is repeat left breast mammogram and ultrasound in 6 months. The patient was informed of the findings and follow-up recommendations by myself prior to leaving the department today. BI-RADS Category 3 - 6 month - Probably Benign Finding: Recommend follow-up mammography and ultrasoun d in 6 months Breast Density - Category B - Scattered areas of fibroglandular density Breast density Category C or D implies that the patient has dense breast tissue. Dense breast tissue can make it harder to find cancer on a mammogram. Dense breast tissue is also associated with an incr eased risk of breast cancer. This information about the result of the mammogram report was provided to the patient to raise their awareness. Use this report when you speak with the patient about their risks for breast cancer, which includes their family history. At that time, you may recommend additional screening tests (Ultrasoun d or MRI) as these tests may add significant information. A negative radiographic report should not delay biopsy if a dominant or clinically suspicious mass is present. Up to ten percent of cancers are not identified on mammography. A negative report may reinforce clinical impression. Adenosis and dense breasts may obscure an underlying neoplasm. False positive reports average 6 to 10%. Patient will receive a letter notifying them of these results.
== END 2024-12-27 02:18 ==
LOC: DI 01:58
PROVIDERS: PCP Nurse Practitioner Family; Visit Provider Nurse Practitioner Family
DX: N64.4 Mastodynia (principal); Z12.31 Encounter for screening mammogram for malignant neoplasm of breast
CPT/HCPCS: 76642; 77062; 77066; G0279

== ENCOUNTER 2025-06-29 03:31 | Outpatient (CLI) | payer BC, SELFPAY ==
--- NOTE | 2025-06-29 06:30 | DI.US_ITS ---
Exam(s) MAMMO DIAGNOSTIC UNI US BREAST LT LIMITED EXAM: MG MAMMO DIAGNOSTIC UNI and U/S breast LT limited CLINICAL HISTORY: 3-6 mo f/u, r92.8,z09, lt breast findings. TECHNIQUE: Craniocaudal and mediolateral oblique Full Field Digital Mammography views of the left breast with Computer Aided Diagnosis followed by Tomosynthesis and limited left breast ultrasound. COMPARISON: Comparison is made with prior examinations. FINDINGS: Mammography/Tomosynthesis: Masses/Architectural Distortion: There are no suspicious nodules or areas of architectural distortion. Microcalcifictions: No suspicious pleomorphic-type are seen. Skin Thickening/Nipple Retraction: None. Limited left breast US: Echotexture: Normal appearance of the glandular tissue. Shadowing: No suspicious foci. Cyst: There is a benign cyst again seen at the 12 o'clock position 2 cm from the nipple measuring 5 x 2 x 4 mm. Solid lesions: None seen. Ductal dilation: None. IMPRESSION: 1. No evidence of malignancy is noted. 2. Unless there is more urgent need, follow-up screening mammography is recommended, as per [place] [employer] guidelines. 3. The findings were discussed with the patient on the date of the examination. BI-RADS Category 2 - Benign Findings Breast Density - Category B - There are scattered areas of fibroglandular density. Breast density Category C or D implies that the patient has dense breast tissue. Dense breast tissue can make it harder to find cancer on a mammogram. Dense breast tissue is also associated with an increased risk of breast cancer. This information about the result of the mammogram report was provided to the patient to raise their awareness. Use this report when you speak with the patient about their risks for breast cancer, which includes their family history. At that time, you may recommend additional screening tests (Ultrasound or MRI) as these tests may add significant information. A negative radiographic report should not delay biopsy if a dominant or clinically suspicious mass is present. Up to ten percent of cancers are not identified on mammography. A negative report may reinforce clinical impression. Adenosis and dense breasts may obscure an underlying neoplasm. False positive reports average 6 to 10%. Patient will receive a letter notifying them of these results.
== END 2025-06-29 03:51 ==
LOC: DI 03:31
PROVIDERS: PCP Nurse Practitioner Family; Visit Provider Nurse Practitioner Family
DX: Z09 Encounter for follow-up examination after completed treatment for conditions other than malignant neoplasm (principal); R92.8 Other abnormal and inconclusive findings on diagnostic imaging of breast
CPT/HCPCS: 76642; 77061; 77065; G0279